=== PATIENT | female | born 1980 | race Caucasian/White ===

== ENCOUNTER → 2017-09-10 07:45 | Outpatient (CLI) | payer BC, SELFPAY ==
--- NOTE | 2017-09-10 07:51 | CT_ITS ---
CT abdomen pelvis wo con CLINICAL INDICATION: Flank pain, bilateral kidney stones ITS.REASON: KIDNEY STONE ORDERING PHYSICIAN: Gamaliel Ng PATIENT AGE: 37 years COMPARISON: None TECHNIQUE: Axial images obtained with sagittal and coronal reformats. All CT scans at the facility use one or more dose reduction, viz: automated exposure control; ma/kV adjustment per patient size (including targeted exams where dose is matched to indication; i.e. head); or iterative reconstruction technique. PROCEDURE: Oral Contrast: None IV Contrast: None . FINDINGS: Lung bases are clear. The liver, gallbladder, spleen, adrenal glands, and pancreas have an unremarkable unenhanced CT appearance. There are nonobstructing bilateral renal calculi measuring up to 3 mm in the mid polar region on the right and 2 mm in the lower pole on the left. There is a 5 mm stone at the right ureteropelvic junction with minimal ectasia of the right renal collecting system. No intestinal obstruction or free air. Unremarkable appendix. No evidence of diverticulitis. No pelvic mass or abnormal fluid collection or focal inflammatory change in the pelvis. There is a small amount fluid in the pelvis. There are post hysterectomy changes. No acute bony anomalies. IMPRESSION: 1. 5 mm right ureteropelvic junction stone with minimal prominence of the right renal collecting system. 2. Bilateral renal calculi
== END ==
PROVIDERS: PCP Internal Medicine; Visit Provider Urology
DX: N20.0 Calculus of kidney (principal)
CPT/HCPCS: 74176

== ENCOUNTER → 2018-03-25 09:28 | Outpatient (CLI) | payer SELFPAY ==
[2018-03-25 14:35] LABS: Alanine Aminotransferase 41 U/L (12-78); Albumin Level 4.3 gm/dL (3.4-5.0); Albumin/Globulin Ratio 1.3 (1.1-1.8); Alkaline Phosphatase 100 U/L (46-116); Anion Gap 16.4 mEq/L (5-15); Aspartate Amino Transferase 28 U/L (15-37); Bilirubin,Total 0.3 mg/dL (0.2-1.0); Blood Urea Nitrogen 11 mg/dL (7-18); Carbon Dioxide 24 mmol/L (21.0-32.0); Chloride 104 mmol/L (98-107); Chol/HDL Ratio 3.1 (1-3.5); Cholesterol 251 mg/dL (140-200); Creatinine,Serum 0.91 mg/dL (0.55-1.02); Estimated Glomerular Filt Rate 70 ml/min (>60); GFR (African American) 85 ML/MIN (>60); Globulin 3.4 gm/dl (1.3-3.2); Glucose 88 mg/dL (74-106); HDL Cholesterol 80 mg/dL (29-89); LDL Cholesterol 155 mg/dL (0-130); Potassium 4.4 mmoL/L (3.5-5.1); Sodium 140 mmol/L (136-145); Thyroid Stimulating Hormone 1.82 uIU/ml (0.358-3.740); Total Protein,Serum 7.7 gm/dL (6.4-8.2); Triglycerides 82 mg/dL (30-200); VLDL Cholesterol 16 mg/dL (0-40)
[2018-03-25 14:44] LABS: Hemoglobin A1C 4.8 % (0.0-7.0)
== END ==
PROVIDERS: PCP Internal Medicine; Visit Provider Internal Medicine
DX: E66.3 Overweight (principal); Z13.1 Encounter for screening for diabetes mellitus; Z13.220 Encounter for screening for lipoid disorders
CPT/HCPCS: 36415; 80053; 80061; 83036; 84443

== ENCOUNTER → 2018-11-21 07:23 | Outpatient (CLI) | payer BC, SELFPAY ==
[2018-11-21 13:35] LABS: Basophils % 0.7 % (0.1-2.0); Eosinophils # 0.2 K/mm3 (0.0-0.4); Eosinophils % 4.3 % (0.1-12.0); Hematocrit 41.6 % (37.0-47.0); Hemoglobin 13.5 g/dL (12.2-16.2); Lymphocytes # 1.5 K/mm3 (0.7-4.5); Lymphocytes % 31.8 % (10-50); Mean Corpuscular HGB Conc 32.6 g/dL (31.8-35.4); Mean Corpuscular Hemoglobin 33.5 pg (27.0-31.2); Mean Corpuscular Volume 102.9 fl (81-99); Mean Platelet Volume 7.3 fl (7.4-10.4); Monocytes # 0.3 K/mm3 (0.1-1.0); Monocytes % 5.4 % (1.7-9.3); Neutrophils # 2.7 K/mm3 (1.8-7.8); Neutrophils % 57.9 % (37.0-80.0); Platelet Count 287 K/mm3 (142-424); Red Blood Count 4.04 M/mm3 (4.20-5.40); Red Cell Distribution Width 11.8 % (11.5-17.5); White Blood Count 4.6 K/mm3 (4.8-10.8)
[2018-11-21 14:34] LABS: Anion Gap 15.3 mEq/L (5-15); Blood Urea Nitrogen 12 mg/dL (7-18); Calcium 9.2 mg/dL (8.5-10.1); Carbon Dioxide 25 mmol/L (21.0-32.0); Chloride 104 mmol/L (98-107); Creatinine,Serum 0.79 mg/dL (0.55-1.02); Estimated Glomerular Filt Rate 82 ml/min (>60); GFR (African American) 99 ML/MIN (>60); Glucose 85 mg/dL (74-106); Magnesium 1.8 mg/dL (1.4-2.2); Potassium 4.3 mmoL/L (3.5-5.1); Sodium 140 mmol/L (136-145); Thyroid Stimulating Hormone 1.63 uIU/ml (0.358-3.740)
== END ==
PROVIDERS: PCP Internal Medicine; Visit Provider Internal Medicine
DX: R00.0 Tachycardia, unspecified (principal); R42 Dizziness and giddiness
CPT/HCPCS: 36415; 80048; 83735; 84443; 85025

== ENCOUNTER 2019-11-13 14:10 | Emergency (ER) | payer OTHER, BC, SELFPAY ==
[2019-11-13 14:58] VITALS: BP 146/97; PULSE 101; RESP 19; TEMP 36.9; O2SAT 100; BMI 27.8
--- NOTE | 2019-11-13 15:11 | HMH.EDUTC ---
[facility] Disposition Clinical Impression: Exposure to COVID-19 virus Pharyngitis Qualifiers: Pharyngitis/tonsillitis etiology: unspecified etiology Qualified Code(s): J02.9 - Acute pharyngitis, unspecified Disposition: Home, Self-Care Condition on Discharge: Good Instructions: DI for Strep Throat, Preventing the Spread of Coronavirus Discharge Instructions Additional Instructions: Drink plenty of fluids. Take tylenol or ibuprofen for pain or fever. Take the medications as directed. Follow up with your regular doctor. GO TO THE ER FOR ANY WORSENING SYMPTOMS FOLLOW THE DIRECTIONS ON THE COVID-19 HAND OUT THAT WE GAVE YOU REGARDING SELF-ISOLATION UNTIL YOU KNOW YOUR COVID-19 RESULTS Prescriptions: Azithromycin [Z-Baldemar 250mg Tab*] 250 mg PO UD DOSE PK #6 tab Transmission Status: Received by [facility] #[id number] Referrals: Bossman White [Primary Care Provider] - Forms: Work/School Release Time of Disposition: 15:22 Medical Decision Making - Medical Records Medical records reviewed: No: I reviewed the patient's medical records. - [place] Inquiry Pt receiving controlled substance: No Vital Signs: 11/13/19 14:58 11/13/19 15:28 Temperature 98.4 F 98.4 F Temperature Source Oral Pulse Rate 101 H Pulse Rate [Right Brachial] 101 H Respiratory Rate 19 19 Blood Pressure 146/97 H Blood Pressure [Right Arm] 146/97 H Blood Pressure Mean [Right Arm] 113 Blood Pressure Source [Right Arm] Automatic Cuff Blood Pressure Position [Right Arm] Sitting 02 Sat by Pulse Oximetry 100 Oxygen Delivery Method Room Air - Lab Data Lab results reviewed: Yes: I reviewed the patient's lab results. Lab Results 11/13/19 14:31: Strep Scn Rapid Clinic Negative Orders (Tests/Meds): ORDERS Category Date Time Status Covid-19 Nasal PCR Sendout Juan Stat Lab 11/13/19 15:17 Received Strep Screen Confirmation Stat Micro 11/13/19 14:31 Received [facility] HPI - General Stated complaint: sore throat Time Seen by Provider: 11/13/19 15:11 Mode of Arrival: Ambulatory Source of Information: Patient Limitations: No Limitations Description of Symptoms (Recalled from Triage Doc. by RN): PATIENT C/O SORE THROAT AND FATIGUE SINCE YESTERDAY HEENT Symptoms (Recalled from RN notes): Yes Resp Symptoms (Recalled from RN notes): No Skin Symptoms (Recalled from RN notes): No MS Symptoms (Recalled from RN notes): No Functional Status (Recalled from RN notes): WNL - History of Present Illness Provider Complaint: She c/o sore throat and feeling bad for the past 2 days. She denies any documented fever, but she has been chilling. She denies a significant cough. She works at the [employer]. She has been exposed to multiple inmates with COVID-19. - Related Data Home Medications Medication Instructions Recorded Confirmed buPROPion HCL [Bupropion Xl] 300 mg PO DAILY 11/13/19 11/13/19 Previous Rx's Medication Instructions Recorded Azithromycin [Z-Baldemar 250mg Tab*] 250 mg PO UD DOSE PK #6 tab 11/13/19 Allergies Allergy/AdvReac Type Severity Reaction Status Date / Time Penicillins [PENICILLINS] Allergy Unknown Verified 11/13/19 15:03 - Worker's Comp Is this a Worker's Comp case?: No [facility] History - Hepatitis A Screen Drug use history?: No High risk sexual behaviors?: No History of sexually transmitted infection?: No Currently employed?: No Childcare worker?: No Do you have indoor plumbing?: Yes Do you have electricity?: Yes Attestation statement:: This patient has been screened for Hepatitis A risk factors. I have reviewed the patient's past medical history: Yes - Social History Alcohol Intake: never Occupational Status: other ROS Obtained: Yes All systems reviewed & no additional complaints - Constitutional Constitutional: Reports chills, Denies fever(s), Reports poor appetite, Reports malaise - Eyes Eyes: Denies eye discharge - ENT Ears, Nose, Mout
[2019-11-13 15:21] LABS: UTC Strep Screen (Rapid) Negative (Negative)
[2019-11-13 15:28] VITALS: BP 146/97; PULSE 101; RESP 19; TEMP 36.9; O2SAT 100
[2019-11-15 07:40] LABS: Covid-19 Nasal PCR Sendout Lex NOT DETECTED
== END 2019-11-13 15:30 | disposition home or self-care (01) ==
PROVIDERS: Emergency Provider Nurse Practitioner Family; PCP Internal Medicine
DX: J02.9 Acute pharyngitis, unspecified (principal); Z20.828 Contact with and (suspected) exposure to other viral communicable diseases
CPT/HCPCS: 87880; 99202; U0004

== ENCOUNTER 2022-04-15 12:34 | Emergency (ER) | payer BC, SELFPAY ==
[2022-04-15 12:44] VITALS: BP 141/86; PULSE 100; RESP 18; TEMP 36.5; O2SAT 98; BMI 26.7
--- NOTE | 2022-04-15 13:04 | CA_ITS ---
FINAL REPORT TECHNIQUE: Ultrasound images of the deep venous system were obtained from the left groin to the calf veins. CLINICAL HISTORY: RULE OUT BLOOD CLOT, mid-calf pain after feeling a pop in calf. FINDINGS: The deep venous system is normally compressible. Normal flow is identified. IMPRESSION: No evidence of left lower extremity DVT. Reviewed, Interpreted and Dictated by Mukund Sandoval MD Transcribed by Quiana Duncan Authenticated and [facility]
--- NOTE | 2022-04-15 13:06 | EXP.UTC ---
Discharge Plan Disposition Patient Disposition: Home, Self-Care Condition: Good Prescriptions Prescriptions: No Action bupropion HCl 300 MG tablet extended release 24 hr 300 mg PO DAILY azithromycin 250 MG tablet 250 mg PO UD DOSE PK Qty: 6 0RF Rx Instructions: Take two (2) tablets today, then one (1) tablet days #2 thru #5 Referrals Follow up/Referrals: Bossman White [Primary Care Provider] - See instructions Activity Restrictions/Add. Instructions Additional Instructions/Restrictions: *weight bearing as tolerated *RICE, Rest the extremity, Ice 15-20 minutes 3-4 times daily, Compress- wear the jefe wrap as discussed as much as possible to help reduce swelling and pain, Elevate the extremity when at rest *Jefe wrap is for support and help control swelling, use it except in the shower. Be sure that is not to tight but not to loose either *Elevate when resting? *Ibuprofen 600-800mg every 6-8 hours as needed for pain an inflammation. If need something more can take Tylenol in between doses of Ibuprofen to help Immediately follow up with your family doctor for new or worsening of symptoms, or no noticeable improvement over the next 3-5 days Clinical Impressions Clinical Impression: Strain of calf muscle Qualifiers: Encounter type: initial encounter Laterality: left Qualified Code(s): S86.812A - Strain of other muscle(s) and tendon(s) at lower leg level, left leg, initial encounter Stand Alone Forms Stand Alone Forms: Work/School Release Instructions Patient Instructions: Calf Muscle Strain, DI for Calf Muscle Strain Discharge ED Provider: Chloe Tejada [facility] General Stated complaint: pain in Lt leg Mode of Arrival: Ambulatory Source of Information: Patient Limitations: No Limitations Time Seen by Provider: 04/15/22 13:06 Description of Symptoms (Recalled from Triage Doc. by RN): Patient reports pain in her left calf. HEENT Symptoms (Recalled from RN notes): No Resp Symptoms (Recalled from RN notes): No Skin Symptoms (Recalled from RN notes): No MS Symptoms (Recalled from RN notes): Yes Functional Status (Recalled from RN notes): wnl History of Present Illness Provider Complaint: Patient states that she was walking last week and felt pop in her left calf area States that on and off since then she has had pain but over the last few days it has continued to get worse Denies known injury States that area is sore to the touch and hurts to touch it States it felt a little swollen to her so today when she was still having pain in her calf she came in to get it checked Related Data Home Medications Medication Instructions Recorded Confirmed bupropion HCl 300 mg 24 hr tablet, 300 mg PO DAILY Depression 11/13/19 11/13/19 extended release Previous Rx's Medication Instructions Recorded azithromycin 250 mg tablet 250 mg PO UD DOSE PK #6 tabs 11/13/19 Allergies Allergy/AdvReac Type Severity Reaction Status Date / Time Penicillins [PENICILLINS] Allergy Unknown Verified 11/13/19 15:03 Worker's Comp Is this a Worker's Comp case?: No [facility] Disclaimer: The information contained in this section may have been updated after the patient was seen, as this information can be updated by other users. Social History Smoking Status: Unknown if ever smoked alcohol intake: never current occupational status: other Travel in the last 8 weeks: None ROS Obtained: Yes All systems reviewed & no additional complaints except as documented and Yes Systems reviewed as appropriate & no additional complaints except as documented Constitutional Constitutional: Reports system reviewed and no additional complaints, except as documented and Reports as per HPI ENT Ears, Nose, Mouth, and Throat: Reports system reviewed and no additional complaints, except as documented and Reports as per HPI Cardiovascular Cardiovascular: Reports system reviewed and no additional complaints, except as documente
[2022-04-15 13:50] VITALS: BP 141/80; PULSE 100; RESP 18; TEMP 36.5; O2SAT 98
== END 2022-04-15 14:01 | disposition home or self-care (01) ==
PROVIDERS: Emergency Provider Nurse Practitioner; PCP Internal Medicine
DX: S86.812A Strain of other muscle(s) and tendon(s) at lower leg level, left leg, initial encounter (principal)
CPT/HCPCS: 93971; 99212; 99213; G0463